=== PATIENT | male | born 1940 | race Caucasian/White ===

== ENCOUNTER 2017-07-14 04:02 | Emergency (ER) | payer MEDICARE, BC ==
[~2017-07-14] VITALS: Ht 182.9 cm; Wt 111.1 kg
[~2017-07-14 04:02] MED LIST: ACETAMINOPHEN PO; ALBUTEROL17 GM INH; ASPIRIN81 M1 PO; ASPIRINEC PO; AVELOX400 MG PO; BENTYL20 MG PO; CENTRUM SILVER PO; CERTAGEN PO; COREG3.125 MG PO; DEMEROL PO; FAMOTIDINE PO; GINGER; INDOMETHACIN25 MG PO; INDOMETHACIN50 MG PO; INDOMETHACIN75 MG PO; LISINOPRIL2.5 MG PO; LO-DOSE ASPIRIN81 M1 PO; LOTRISONE CREAM45 GM TOP; MEDROL4 MG/DOSE- PO; NITROGLYCERIN0.4 MG SL; PLAVIX PO; TYLENOL #4 PO; VIAGRA PO; ZOCOR PO; ZOFRANODT PO; ZYLOPRIM PO; ZYLOPRIM100 MG PO; [UNRECOGNIZED DRUG - OTHER] PO
== END 2017-07-14 04:55 | disposition home or self-care (01) ==
LOC: CED 04:02
DX: M25.572 Pain in left ankle and joints of left foot (principal); M10.9 Gout, unspecified; I10 Essential (primary) hypertension; Z88.8 Allergy status to other drugs, medicaments and biological substances
CPT/HCPCS: 96372; 99283; J2270

== ENCOUNTER 2017-07-28 05:53 | Emergency (ER) | payer MEDICARE, BC ==
[~2017-07-28] VITALS: Ht 205.7 cm; Wt 111.1 kg
== END 2017-07-28 07:05 | disposition home or self-care (01) ==
LOC: CED 05:53
DX: M10.072 Idiopathic gout, left ankle and foot (principal); I10 Essential (primary) hypertension; Z88.8 Allergy status to other drugs, medicaments and biological substances
CPT/HCPCS: 96372; 99283; J2270